=== PATIENT | male | born 1980 | race Caucasian/White ===

== ENCOUNTER 2020-05-09 18:21 | Emergency (ER) | payer MEDICAID ==
[2020-05-09] MEDS ORDERED: Clindamycin HCl 150 MG Cap PO ONE (18:22)
[2020-05-09] MEDS ORDERED: Bacitracin/Neomycin/Polymyxin B Oint 0.9 GM U/D Packet TOP ONE (18:52)
[2020-05-09] MEDS ORDERED: cefTRIAXone 1 GM Vial IM ONE (18:57)
[2020-05-09] MEDS ORDERED: Take Home: Clindamycin HCl 150 MG Cap, 6 Cap Pack PO ONE (18:57)
--- NOTE | 2020-05-09 19:04 | EDM.PDOC ---
ED HPI GENERAL MEDICAL PROBLEM - General Chief Complaint: Lower Extremity Injury/Pain Stated Complaint: "infection in my leg" Time Seen by Provider: 05/09/20 18:40 Source of Information: Reports: Patient History Limitations: Reports: No Limitations - History of Present Illness INITIAL COMMENTS - FREE TEXT/NARRATIVE: Sampson is a 40 yo male who presents to the ED ambulatory with concerns of infection to his left lower leg. He states he started to notice it a few days ago and thinks it was from a spider bite. Admits he thought it was coming to a head and squeezed some stuff out of it the last few days. States tonight the area has became more red around it and hard in the center. He states he is having a lot of discomfort with it now. Reports pain a 6 out of 10. He states he is unsure if he has been running a fever or not. Left Lower Leg Pain Score (Numeric/FACES): 6 - Related Data Allergies Allergy/AdvReac Type Severity Reaction Status Date / Time No Known Allergies Allergy Verified 05/09/20 18:24 Home Meds: Home Meds . [No Known Home Meds] 05/09/20 [History] Past Medical History - Infectious Disease History Infectious Disease History: Reports: None - Past Surgical History Musculoskeletal Surgical History: Reports: Other (See Below) Other Musculoskeletal Surgeries/Procedures:: bilateral elbow surgery Social & Family History - Tobacco Use Smoking Status *Q: Current Some Day Smoker Years of Tobacco use: 25 Packs/Tins Daily: 0.5 - Caffeine Use Caffeine Use: Reports: Coffee, Soda - Recreational Drug Use Recreational Drug Use: No Review of Systems - Review of Systems Review Of Systems: Comprehensive ROS is negative, except as noted in HPI. ED EXAM, GENERAL - Physical Exam Exam: See Below Exam Limited By: No Limitations General Appearance: Alert, No Apparent Distress Skin Exam: Erythema (roughly 4cm in diameter area of erythema with moderate warmth and redness. Center of area appears to be hard to tough, concerns of central abscess. Tender to touch), Increased Warmth ED TRAUMA EXTREMITY PROCEDURES - I&D Site: left posterior lateral midcalf Skin Prep: Providone-Iodine (Betadine) Local Anesthesia: Lidocaine: 1% Plain Local Anesthetic Volume: 3cc Area Incised With: 11 Blade Drainage: Clear, Bloody Sterile Dressing: Adhesive Dressing Complications: No Course - Vital Signs Last Recorded V/S: Last Vital Signs Temp 97.7 F 05/09/20 18:22 Pulse 80 05/09/20 18:22 Resp 16 05/09/20 18:22 BP 129/73 05/09/20 18:22 Pulse Ox 100 05/09/20 18:22 - Orders/Labs/Meds Orders: Active Orders 24 hr Category Date Time Status CULTURE WOUND [RM] Stat Lab 05/09/20 18:57 Ordered Lidocaine 1% [Xylocaine-MPF 1%] Med 05/09/20 18:58 Once 5 ml INJECT ONETIME ONE cefTRIAXone [Rocephin] Med 05/09/20 18:57 Once 1 gm IM ONETIME ONE clindamycin HCL [Take Home: Clindamycin HCl 150 MG, 6 Med 05/09/20 18:57 Once Cap Pack] 1 packet PO ONETIME ONE Meds: Medications Discontinued Medications Generic Name Dose Route Start Last Admin Trade Name Freq PRN Reason Stop Dose Admin Lidocaine HCl 1 - 10 ml 05/09/20 18:42 05/09/20 18:45 Xylocaine-Mpf 1% INJECT 05/09/20 18:43 5 ml ONETIME ONE Administration Neomycin/Polymyxin/Bacitracin 1 each 05/09/20 18:52 05/09/20 18:54 Triple Antibiotic Oint TOP 05/09/20 18:53 1 each ONETIME ONE Administration Departure - Departure Time of Disposition: 19:07 Disposition: Home, Self-Care 01 Clinical Impression: Cellulitis and abscess of left leg - Discharge Information Instructions: Cellulitis, Adult, Skin Abscess, [id number] Additional Instructions: 1) Clindamycin 300mg 4 times a day for 10 days 2) Keep area clean and dry 3) Closely watch for spreading of redness. 4) Recommend taking 1000mg of Tylenol with 400mg of ibuprofen every 6 hours as needed for discomfort. Do not take more than 4000mg of Tylenol (acetaminophen) in 24 hours 5) Culture obtained from wound and will call once available Roughly 48 hours 6) If start to run a fever, worsening discomfort, or any concerns at all, recommend reevaluation. Sepsis Event Note (ED) - Evaluation Sepsis Screening Result: No Definite Risk - Focused Exam Vital Signs: Vital Signs Temp Pulse Resp BP Pulse Ox 05/09/20 18:22 97.7 F 80 16 129/73 100 - Problem List & Annotations (1) Cellulitis and abscess of left leg SNOMED Code(s): 266695515 Code(s): L03.116 - CELLULITIS OF LEFT LOWER LIMB; L02.416 - CUTANEOUS ABSCESS OF LEFT LOWER LIMB Status: Acute - My Orders Last 24 Hours: My Active Orders 05/09/20 18:57 CULTURE WOUND [RM] Stat cefTRIAXone [Rocephin] 1 gm IM ONETIME ONE clindamycin HCL [Take Home: Clindamycin HCl 150 MG, 6 Cap Pack] 1 packet PO ONETIME ONE 05/09/20 18:58 Lidocaine 1% [Xylocaine-MPF 1%] 5 ml INJECT ONETIME ONE - Assessment/Plan Last 24 Hours: My Active Orders 05/09/20 18:57 CULTURE WOUND [RM] Stat cefTRIAXone [Rocephin] 1 gm IM ONETIME ONE clindamycin HCL [Take Home: Clindamycin HCl 150 MG, 6 Cap Pack] 1 packet PO ONETIME ONE 05/09/20 18:58 Lidocaine 1% [Xylocaine-MPF 1%] 5 ml INJECT ONETIME ONE Plan: Discussed findings with Sampson. Elected to proceed with I&D. Obtained culture. IM Rocephin given. Please see additional instructions.
== END 2020-05-09 19:13 | disposition home or self-care (01) ==
LOC: CC.ED 18:21
DX: L03.116 Cellulitis of left lower limb (principal); L02.416 Cutaneous abscess of left lower limb; F17.210 Nicotine dependence, cigarettes, uncomplicated
CPT/HCPCS: 10060; 87070; 87077; 87186; 96372; 99283-25; A9270-GY; J0696; J2001